=== PATIENT | male | born 1945 | race Caucasian/White ===

== ENCOUNTER → 2019-04-11 | Outpatient (CLI) | payer OTHER, MEDICARE ==
--- NOTE | 2019-04-14 11:08 | ECHO ---
DATE OF STUDY: 04/11/2019 DATE OF : 1945 AGE: 73 REFERRING PROVIDER: Dr. Christian Villareal PATIENT LOCATION: Outpatient. REASON FOR THE STUDY: Heart murmur. 2-D MEASUREMENTS: IVS: 1.0 cm LV: 5.6 cm LVPW: 1.0 cm LA: 4.6 cm Aorta: 3.6 cm RV: 4.0 cm IVC: 1.6 cm DOPPLER MEASUREMENTS: Mitral E: 0.9 Mitral A: 1.2 Ratio: 0.7 Maximum tricuspid valve velocity: 2.9 m/s 2-D COMMENTS: 1. Mildly enlarged left ventricle with normal left ventricular wall thickness and low normal global left ventricular systolic function. The estimated ventricular systolic ejection fraction is 55-60%. 2. Mildly enlarged left atrium. Normal right atrium and right ventricle. 3. The atrial septum appeared to be normal without evidence of defect or shunt. 4. Normal aortic root. 5. A small pericardial effusion was noted, no evidence of cardiac tamponade. 6. Mildly calcified aortic valve, leaflet excursion appeared to be mildly restricted. Normal tricuspid valve and pulmonic valves. Mildly calcified mitral annulus with normal anterior mitral valve leaflet motion. The proximal pulmonary artery branches were not well visualized. 7. The inferior vena cava was normal in size, central venous pressure is most likely normal. DOPPLER: Detects mild aortic regurgitation, mild mitral regurgitation, and trace tricuspid regurgitation. The calculated pulmonary artery systolic pressure was normal. Abnormal relaxation pattern was noted across the mitral valve leaflets as well as the mitral valve annulus consistent with some features of grade 1 left ventricular diastolic dysfunction. IMPRESSION: 1. Low normal global left ventricular systolic function with a mildly enlarged left ventricle. There are features of grade 1 left ventricular diastolic dysfunction manifested by abnormal relaxation. 2. Aortic valve sclerosis with mild aortic regurgitation and probably mild aortic stenosis. 3. Mitral annulus calcification with mild mitral regurgitation and a mildly enlarged left atrium. 4. Trace tricuspid regurgitation with a normal calculated pulmonary artery systolic pressure. 5. A small pericardial effusion was noted, no evidence of cardiac tamponade.
== END ==
LOC: M CARPUL 09:53
PROVIDERS: ATTEND Internal Medicine
DX: R01.1 Cardiac murmur, unspecified (principal)

== ENCOUNTER → 2020-10-27 | Outpatient (CLI) | payer OTHER ==
[~2020-10-27] MED LIST: ADV250INH INH; APAP325T4 PO; CETI10CH PO; CYAN500T14 PO; D31000TA2 PO; FERR32TA PO; FLUT15.820; GOOD81CH2 PO; METF500T13 PO; MONT10TA10 PO; NAPR-885 PO; OMEP1CAP73 PO; PARO20TA3 PO; ROSU40TA4 PO; TERA2CAP3 PO; VITMTA PO
== END ==
LOC: M LABSMTC 12:14
PROVIDERS: ATTEND Anesthesiology
DX: Z01.812 Encounter for preprocedural laboratory examination (principal)

== ENCOUNTER 2020-11-01 10:07 | Day surgery (SDC) | payer OTHER ==
[~2020-11-01] VITALS: Ht 167.6 cm; Wt 93.9 kg
[~2020-11-01 10:07] MED LIST changes: +NS 1,000 ML IV ONE
[2020-11-01] MEDS ORDERED: LIDOCAINE 2% 100MG/5ML SDV (FOR ANES.) As Ordered ONE ×2 (11:34→11:51)
[2020-11-01] MEDS ORDERED: propofoL 200 MG/20 ML VIAL As Ordered ONE (11:34)
[2020-11-01] MEDS ORDERED: propofoL 500 MG/50 ML VIAL As Ordered ONE (11:51)
--- NOTE | 2020-11-01 12:13 | ROOR ---
Patient Name: Huey Edwards Procedure Date: 11/01/2020 11:54 AM Date of : 1945 Age: 75 Room: [facility] Gender: Male Note Status: Finalized Procedure: Total Colonoscopy to Cecum + ileoscopy Indications: Colon cancer screening in patient at increased risk: Colorectal cancer in brother Providers: Deejay Bowman MD Referring MD: Christian Villareal MD Requesting Provider: Medicines: Monitored Anesthesia Care Complications: No immediate complications. Procedure: Pre-Anesthesia Assessment: - The heart rate, respiratory rate, oxygen saturations, blood pressure, adequacy of pulmonary ventilation, and response to care were monitored throughout the procedure. The Colonoscope was introduced through the anus and advanced to the terminal ileum, with identification of the appendiceal orifice and IC valve. The colonoscopy was performed without difficulty. The patient tolerated the procedure well. The quality of the bowel preparation was excellent. Findings: The perianal and digital rectal examinations were normal. Non-bleeding internal hemorrhoids were found during retroflexion. The hemorrhoids were small and Grade I (internal hemorrhoids that do not prolapse). Multiple small and large-mouthed diverticula were found in the recto-sigmoid colon, sigmoid colon and descending colon. The exam was otherwise without abnormality on direct and retroflexion views. The terminal ileum appeared normal. Impression: - Non-bleeding internal hemorrhoids. - Diverticulosis in the recto-sigmoid colon, in the sigmoid colon and in the descending colon. - The examination was otherwise normal on direct and retroflexion views. - The examined portion of the ileum was normal. - No specimens collected. - The exam was otherwise normal to the cecum. Recommendation: - Patient has a contact number available for emergencies. The signs and symptoms of potential delayed complications were discussed with the patient. Return to normal activities tomorrow. Written discharge instructions were provided to the patient. - High fiber diet. - Discharge patient to home. - Continue present medications. - Repeat colonoscopy is not recommended due to current age (66 years or older) for screening purposes. - Return to referring physician. - The findings and recommendations were discussed with the patient's family. Procedure Code(s): --- Professional --- G0105, Colorectal cancer screening; colonoscopy on individual at high risk Diagnosis Code(s): --- Professional --- Z80.0, Family history of malignant neoplasm of digestive organs K64.0, First degree hemorrhoids K57.30, Diverticulosis of large intestine without perforation or abscess without bleeding CPT copyright 2019 [employer]. All rights reserved. The codes documented in this report are preliminary and upon event designer review may be revised to meet current compliance requirements. Deejay Bowman MD Deejay Bowmna MD 11/01/2020 12:12:51 PM Electronically signed by Deejay Bowman MD Number of Addenda: 0 Note Initiated On: 11/01/2020 11:54 AM Estimated Blood Loss: Estimated blood loss: none.
[2020-11-01 12:32] VITALS: BP 148/91
== END 2020-11-01 12:41 | disposition home or self-care (01) ==
LOC: M OPP 10:07
PROVIDERS: ATTEND Internal Medicine Gastroenterology
DX: Z12.11 Encounter for screening for malignant neoplasm of colon (principal); Z80.0 Family history of malignant neoplasm of digestive organs; K57.30 Diverticulosis of large intestine without perforation or abscess without bleeding; K64.0 First degree hemorrhoids; Z79.82 Long term (current) use of aspirin; Z79.899 Other long term (current) drug therapy; Z85.118 Personal history of other malignant neoplasm of bronchus and lung

== ENCOUNTER 2022-10-29 20:51 | Emergency (ER) | payer MEDICARE, OTHER ==
[~2022-10-29] VITALS: Ht 165.1 cm; Wt 94.9 kg
[~2022-10-29 20:51] MED LIST changes: -D31000TA2 PO; -GOOD81CH2 PO; -MONT10TA10 PO; +MONT10TA97 PO; -NS 1,000 ML IV ONE; +RA A81CH3 PO; +VITA100093 PO
[2022-10-29] MEDS ORDERED: BOOSTRIX VACCINE (TETANUS/DIPHTH/ACEL. PERTUSSIS) 0.5ML SYR IM ONE (22:50)
[2022-10-29 23:00] VITALS: BP 144/82
== END 2022-10-29 23:01 | disposition home or self-care (01) ==
LOC: M ED 20:51
DX: S01.01XA Laceration without foreign body of scalp, initial encounter (principal); W22.8XXA Striking against or struck by other objects, initial encounter; E11.9 Type 2 diabetes mellitus without complications; E78.5 Hyperlipidemia, unspecified; J44.9 Chronic obstructive pulmonary disease, unspecified; K21.9 Gastro-esophageal reflux disease without esophagitis; D64.9 Anemia, unspecified; F10.10 Alcohol abuse, uncomplicated; Z88.7 Allergy status to serum and vaccine; Z79.82 Long term (current) use of aspirin; Z79.4 Long term (current) use of insulin; Z79.83 Long term (current) use of bisphosphonates; Z79.899 Other long term (current) drug therapy

== ENCOUNTER 2023-01-17 23:51 | Emergency (ER) | payer MEDICARE, OTHER ==
[~2023-01-17] VITALS: Ht 165.1 cm; Wt 88.6 kg
[~2023-01-17 23:51] MED LIST changes: +ASPI-663 PO; -RA A81CH3 PO
[2023-01-18 01:04] LABS: CK-MB VALUE MASS 2.3 NG/ML (<3.6); ETHYL ALCOHOL (ETHANOL) 0.151 % (0.000-0.010)
[2023-01-18 01:05] LABS: ACETAMINOPHEN LEVEL < 2.0 UG/ML (10.0-20.0); CPK CREATINE PHOSPHOKINASE 206 U/L (46-171); MB/CK RELATIVE INDEX 1.11 (< OR =4)
[2023-01-18 01:06] LABS: BLOOD UREA NITROGEN 20 MG/DL (9-23); CALCIUM LEVEL 9.3 MG/DL (8.3-10.6); CARBON DIOXIDE LEVEL 22 MMOL/L (20-31); CHLORIDE LEVEL 109 MMOL/L (98-107); CREATININE FOR GFR 0.99 MG/DL (0.70-1.30); GLOMERULAR FILTRATION RATE > 60.0 (>42); GLUCOSE, FASTING 132 MG/DL (74-106); POTASSIUM SERUM 4.1 MMOL/L (3.5-5.1); SODIUM LEVEL 144 MMOL/L (136-145)
[2023-01-18 01:25] LABS: BASO % 0.3 % (0.0-1.0); EOS # 0.1 10^3/uL (0.0-0.5); HEMATOCRIT 38.3 % (42.0-52.0); HEMOGLOBIN 12.8 g/dl (13.5-17.5); LYMPH # 1.8 10^3/uL (1.5-5.0); LYMPH % 30.8 % (24.0-44.0); MEAN CORPUSCULAR HEMOGLOBIN 31.2 pg (27.0-33.0); MEAN CORPUSCULAR HGB CONC 33.4 g/dl (32.0-36.5); MEAN CORPUSCULAR VOLUME 93.4 fl (80.0-96.0); MONO # 0.6 10^3/uL (0.0-0.8); MONO % 9.2 % (2.0-8.0); NEUTROPHILS # 3.4 10^3/uL (1.5-8.5); NEUTROPHILS % 57.4 % (36.0-66.0); PLATELET COUNT, AUTOMATED 177 10^3/uL (150-450)
[2023-01-18 02:15] VITALS: TEMP 98
[2023-01-18 02:45] VITALS: O2SAT 97
[2023-01-18 05:27] VITALS: BP 143/72
== END 2023-01-18 05:42 | disposition home or self-care (01) ==
LOC: EDBD 23:51 → M ED 23:51
DX: R55 Syncope and collapse (principal); G20 Parkinson's disease; W19.XXXA Unspecified fall, initial encounter; E11.9 Type 2 diabetes mellitus without complications; E78.5 Hyperlipidemia, unspecified; K21.9 Gastro-esophageal reflux disease without esophagitis; J45.909 Unspecified asthma, uncomplicated; F32.A Depression, unspecified; F10.10 Alcohol abuse, uncomplicated; Z79.84 Long term (current) use of oral hypoglycemic drugs; Z88.7 Allergy status to serum and vaccine; Z79.82 Long term (current) use of aspirin; Z79.4 Long term (current) use of insulin; Z79.83 Long term (current) use of bisphosphonates; Z79.899 Other long term (current) drug therapy

== ENCOUNTER → 2023-04-25 | Outpatient (REF) | payer OTHER | LOC: M LAB REF 10:32 | PROVIDERS: ATTEND Internal Medicine Pulmonary Disease | DX: R05.3 Chronic cough (principal) ==

== ENCOUNTER → 2023-05-29 | Outpatient (CLI) | payer OTHER, MEDICARE | LOC: M PLAIMG 12:39 | PROVIDERS: ATTEND Internal Medicine Pulmonary Disease | DX: R91.8 Other nonspecific abnormal finding of lung field (principal) ==

== ENCOUNTER → 2023-08-30 | Outpatient (CLI) | payer OTHER, MEDICARE | LOC: M SOG 13:33 | PROVIDERS: ATTEND Orthopaedic Surgery | DX: M25.552 Pain in left hip (principal); M25.551 Pain in right hip; M47.817 Spondylosis without myelopathy or radiculopathy, lumbosacral region; M46.96 Unspecified inflammatory spondylopathy, lumbar region; M41.86 Other forms of scoliosis, lumbar region ==

== ENCOUNTER → 2024-09-30 | Outpatient (CLI) | payer MEDICARE, OTHER ==
[~2024-09-30] MED LIST changes: -ADV250INH INH; +ADVA1AER9 INH; -ROSU40TA4 PO; +ROSU40TA81 PO
== END ==
LOC: M SOG 07:54
PROVIDERS: ATTEND Orthopaedic Surgery
DX: M54.50 Low back pain, unspecified (principal); M47.896 Other spondylosis, lumbar region

== ENCOUNTER 2025-03-08 20:55 | Inpatient (IN) | payer OTHER, MEDICARE ==
[~2025-03-08] VITALS: Ht 165.1 cm; Wt 82.4 kg
[2025-03-08] MEDS ORDERED: ISOVUE-370 76% 100 ML VIAL As Ordered ONE (22:13)
[2025-03-08 22:21] LABS: BASO # 0.0 10^3/uL (0.0-0.2); BASO % 0.5 % (0.0-1.0); EOS # 0.1 10^3/uL (0.0-0.5); EOS % 1.8 % (0.0-3.0); LYMPH # 1.2 10^3/uL (1.5-5.0); LYMPH % 21.8 % (24.0-44.0); MONO # 0.4 10^3/uL (0.0-0.8); MONO % 6.8 % (2.0-8.0); NEUTROPHILS # 3.8 10^3/uL (1.5-8.5); NEUTROPHILS % 68.9 % (36.0-66.0); PLATELET COUNT, AUTOMATED 160 10^3/uL (150-450)
[2025-03-08 22:34] LABS: INR 0.94
[2025-03-08] MEDS: NS (Normal Saline) 0.9% 1,000 ML IV ONE (22:35)
[2025-03-08 22:45] LABS: CALCIUM LEVEL 8.8 MG/DL (8.3-10.6); CARBON DIOXIDE LEVEL 21.0 MMOL/L (20-31); CHLORIDE LEVEL 105.0 MMOL/L (98-107); CK-MB VALUE MASS 2.0 NG/ML (<3.6); CREATININE FOR GFR 0.99 MG/DL (0.70-1.30); GLOMERULAR FILTRATION RATE 78.5 (>42); POTASSIUM SERUM 4.4 MMOL/L (3.5-5.1); SODIUM LEVEL 140.0 MMOL/L (136-145)
[2025-03-08 22:46] LABS: CPK CREATINE PHOSPHOKINASE 91.0 U/L (46-171); MB/CK RELATIVE INDEX 2.19 (< OR =4)
[2025-03-09] VITALS (13 sets, daily range): BP systolic 92–150; BP diastolic 57–78; TEMP 97.1–98.2; O2SAT 92–96
[2025-03-09] MEDS ORDERED: GLUCOSE 4 GM CHEW PO PRN (01:15)
[2025-03-09] MEDS ORDERED: GLUCAGON INJ 1 MG VIAL SC PRN (01:15)
[2025-03-09] MEDS ORDERED: MOM 30 ML SUSPENSION UDC PO PRN (01:15)
[2025-03-09] MEDS ORDERED: MAALOX 30 ML SUSP *UDC PO PRN (01:15)
[2025-03-09] MEDS ORDERED: DEXTROSE 50% 50 ML SYRINGE IV PRN (01:15)
[2025-03-09] MEDS ORDERED: ACETAMINOPHEN 325 MG TAB PO PRN (01:15)
[2025-03-09 02:02] LABS: ESTIMATED AVERAGE GLUCOSE 148.0 MG/DL (60-110)
[2025-03-09] MEDS: LR 1,000 ML IV SCH (02:22)
[2025-03-09 02:25] LABS: ALT/SGPT 15.0 U/L (7.0-40); AST/SGOT 18.0 U/L (<34); CHOLESTEROL LEVEL 142.0 MG/DL (<200); CHOLESTEROL RISK RATIO 2.09 (<5); CK-MB VALUE MASS 2.1 NG/ML (<3.6); CPK CREATINE PHOSPHOKINASE 88.0 U/L (46-171); LDL CHOLESTEROL 9.7 MG/DL (<100); MB/CK RELATIVE INDEX 2.38 (< OR =4); NON-HDL-C 74.3 MG/DL; TRIGLYCERIDES LEVEL 323.0 MG/DL (<150)
[2025-03-09] MEDS ORDERED: CETI-24 PO (05:01)
[2025-03-09] MEDS ORDERED: EZET10TA57 PO (05:01)
[2025-03-09] MEDS ORDERED: ASPI81TA26 PO (05:01)
[2025-03-09] MEDS ORDERED: OMEP40CA5 PO (05:01)
[2025-03-09] MEDS ORDERED: B-12100020 PO (05:01)
[2025-03-09] MEDS ORDERED: MULT-40 PO (05:01)
[2025-03-09] MEDS ORDERED: JARD1TAB3 PO (05:08)
[2025-03-09] MEDS ORDERED: CELE0.09 PO (05:08)
[2025-03-09] MEDS ORDERED: ALBU2.5V10 INH (05:08)
[2025-03-09] MEDS ORDERED: TAMS-18 PO (05:08)
[2025-03-09] MEDS ORDERED: CARB-113 PO (05:08)
[2025-03-09] MEDS ORDERED: VENTAER INH (05:08)
[2025-03-09] MEDS ORDERED: FAMO40TA3 PO (05:08)
[2025-03-09] MEDS ORDERED: HOME MED LIST COMPLETE! XX SCH (05:10)
[2025-03-09 05:36] LABS: PLATELET COUNT, AUTOMATED 158 10^3/uL (150-450)
[2025-03-09] MEDS: HEPARIN SOD 5000 UNITS/ML 1 ML VIAL/SYRINGE SC SCH (06:00)
[2025-03-09 06:04] LABS: ALT/SGPT 19 U/L (7.0-40); AST/SGOT 19 U/L (<34); CALCIUM LEVEL 8.8 MG/DL (8.3-10.6); CARBON DIOXIDE LEVEL 25 MMOL/L (20-31); CHLORIDE LEVEL 108 MMOL/L (98-107); CREATININE FOR GFR 0.80 MG/DL (0.70-1.30); GLOMERULAR FILTRATION RATE > 90.0 (>42); MAGNESIUM LEVEL 2.0 MG/DL (1.8-2.4); POTASSIUM SERUM 4.4 MMOL/L (3.5-5.1); SODIUM LEVEL 142 MMOL/L (136-145)
[2025-03-09] MEDS: INSULIN LISPRO (NovoLOG) PER UNIT SC SCH ×2 (07:30→21:00)
[2025-03-09] MEDS: DOCUSATE SODIUM 100 MG CAPSULE PO SCH (08:39)
[2025-03-09] MEDS: CLOPIDOGREL 75 MG TAB PO SCH (10:31)
[2025-03-09] MEDS: ASPIRIN 81 MG ENTERIC TABLET PO SCH (10:31)
[2025-03-09] MEDS: CARBIDOPA/LEVODOPA 25 MG/100 MG PO SCH (13:30)
[2025-03-09] MEDS: PARoxetine 10MG/5ML SUSP ORAL SYRINGE *DRAW UP EXACT DOSE PO SCH (15:12)
[2025-03-09] MEDS: ADVAIR HFA 115/21 MCG INHALER INH SCH (20:18)
[2025-03-09] MEDS: FAMOTIDINE 20 MG TAB PO SCH (21:32)
[2025-03-09] MEDS: ROSUVASTATIN 10 MG TAB PO SCH (21:32)
[2025-03-09] MEDS: FERROUS GLUCONATE 324 MG TAB PO SCH (21:32)
[2025-03-09] MEDS: EZETIMIBE 10 MG TABLET PO SCH (21:32)
[2025-03-10] VITALS: BP 128/60; TEMP 97.6; O2SAT 98
[2025-03-10 04:12] VITALS: BP 131/60; TEMP 96.9; O2SAT 97
[2025-03-10 05:13] LABS: PLATELET COUNT, AUTOMATED 161 10^3/uL (150-450)
[2025-03-10 05:51] LABS: CALCIUM LEVEL 8.8 MG/DL (8.3-10.6); CARBON DIOXIDE LEVEL 27 MMOL/L (20-31); CHLORIDE LEVEL 109 MMOL/L (98-107); CREATININE FOR GFR 0.78 MG/DL (0.70-1.30); GLOMERULAR FILTRATION RATE > 90.0 (>42); POTASSIUM SERUM 4.1 MMOL/L (3.5-5.1); SODIUM LEVEL 142 MMOL/L (136-145)
[2025-03-10 08:18] VITALS: BP 115/56; TEMP 97.1; O2SAT 97
[2025-03-10] MEDS: MONTELUKAST 10 MG TAB PO SCH (08:51)
[2025-03-10] MEDS: CETIRIZINE 10 MG TAB PO SCH (08:51)
[2025-03-10] MEDS: OMEPRAZOLE 20MG CAP PO SCH (08:51)
[2025-03-10] MEDS ORDERED: PARoxetine 20MG TABLET PO SCH (09:00)
[2025-03-10] MEDS ORDERED: CLOP75TA99 PO (09:53)
[2025-03-10] MEDS: FLUZONE HIGH DOSE (65+) 0.5 ML SYRINGE (25-26) IM.IMMUN ONE (10:41)
== END 2025-03-10 11:35 | disposition home or self-care (01) | DRG 312 ==
LOC: M ED 20:55 → M ED INP 23:48 → M PCU 03-09 04:22
PROVIDERS: ADMIT Student in an Organized Health Care Education/Training Program; ATTEND Internal Medicine
DX: I95.1 Orthostatic hypotension (principal); G45.9 Transient cerebral ischemic attack, unspecified; I50.32 Chronic diastolic (congestive) heart failure; E11.9 Type 2 diabetes mellitus without complications; E78.5 Hyperlipidemia, unspecified; G47.33 Obstructive sleep apnea (adult) (pediatric); K21.9 Gastro-esophageal reflux disease without esophagitis; N40.0 Benign prostatic hyperplasia without lower urinary tract symptoms; J45.909 Unspecified asthma, uncomplicated; Z85.118 Personal history of other malignant neoplasm of bronchus and lung; I08.0 Rheumatic disorders of both mitral and aortic valves; Z79.82 Long term (current) use of aspirin; Z79.899 Other long term (current) drug therapy; Z88.7 Allergy status to serum and vaccine